=== PATIENT | female | born 1970 | race Caucasian/White ===

== ENCOUNTER → 2016-06-27 | Outpatient (CLI) | payer OTHER ==
[~2016-06-27] MED LIST: [UNRECOGNIZED DRUG - CODE] PO
== END | disposition home or self-care (01) ==
LOC: C.PAPS 10:11
PROVIDERS: ATTEND Obstetrics & Gynecology
DX: Z01.419 Encounter for gynecological examination (general) (routine) without abnormal findings (principal)

== ENCOUNTER → 2016-10-24 | Outpatient (CLI) | payer OTHER ==
--- NOTE | 2016-10-27 07:43 | MAMMOGRAPHY REPORT ---
BILATERAL DIGITAL SCREENING MAMMOGRAM TOMOSYNTHESIS WITH CAD: 10/24/2016 CLINICAL HISTORY: Routine screening. Patient has no complaints. TECHNIQUE: Breast tomosynthesis in addition to standard 2D mammography was performed. Current study was also evaluated with a Computer Aided Detection (CAD) system. COMPARISON: Comparison is made to exams dated: 11/23/2015 mammogram, 11/24/2014 mammogram, 11/18/2013 m ammogram, 06/17/2013 ultrasound, 06/17/2013 mammogram, and 11/26/2012 ultrasound - [facility]. BREAST COMPOSITION: The tissue of both breasts is extremely dense, which lowers the sensitivity of m ammography. FINDINGS: No suspicious masses, calcifications, or areas of architectural distortion are noted in ei ther breast. There has been no significant interval change compared to prior exams. IMPRESSION: ACR BI-RADS CATEGORY 1: NEGATIVE There is no mammographic evidence of malignancy. A 1 year screening mammogram is recommended. The pa tient will receive written notification of the results. Approximately 10% of breast cancers are not detected with mammography. A negative mammographic report should not delay biopsy if a clinically suggestive mass is present. Hanh Honeycutt M.D. /:10/24/2016 15:24:58 Senior Data Architect: Veronique Hernandez, [facility] letter sent: Normal 1/2 BI-RADS Code: ACR BI-RADS Category 1: Negative
== END | disposition home or self-care (01) ==
LOC: C.MAMM 13:50
PROVIDERS: ATTEND Obstetrics & Gynecology
DX: Z12.31 Encounter for screening mammogram for malignant neoplasm of breast (principal)

== ENCOUNTER → 2017-05-04 | Outpatient (CLI) | payer OTHER | END | disposition home or self-care (01) | LOC: C.PATHSPEC 17:18 | PROVIDERS: ATTEND Dermatology | DX: D23.4 Other benign neoplasm of skin of scalp and neck (principal); L81.4 Other melanin hyperpigmentation; D22.5 Melanocytic nevi of trunk ==

== ENCOUNTER → 2017-07-03 | Outpatient (CLI) | payer OTHER | END | disposition home or self-care (01) | LOC: C.PAPS 18:14 | PROVIDERS: ATTEND Obstetrics & Gynecology | DX: Z01.419 Encounter for gynecological examination (general) (routine) without abnormal findings (principal) ==

== ENCOUNTER → 2017-10-16 | Outpatient (CLI) | payer OTHER ==
--- NOTE | 2017-10-19 07:45 | MAMMOGRAPHY REPORT ---
BILATERAL DIGITAL SCREENING MAMMOGRAM TOMOSYNTHESIS WITH CAD: 10/16/2017 CLINICAL HISTORY: Routine screening. Patient has no complaints. TECHNIQUE: The study was acquired using full field digital technology and interpreted from soft copy. Breast tomosynthesis in addition to standard 2D mammography was performed. Current study was also ev aluated with a Computer Aided Detection (CAD) system. COMPARISON: Comparison is made to exams dated: 10/24/2016 mammogram, 11/23/2015 mammogram, 11/24/2014 m ammogram, 11/18/2013 mammogram, 06/17/2013 ultrasound, and 06/17/2013 mammogram - [facility]. BREAST COMPOSITION: The tissue of both breasts is extremely dense, which lowers the sensitivity of ma mmography. FINDINGS: There are possible faint calcifications within the left posterior and inferior breast, best seen on t he MLO view, which may be located in the medial breast on the cc view. Recommend spot magnification views and left X CCL view for further evaluation. The remainder of both breasts are stable compared to prior exams, without suspicious masses, calcific ations, or areas of architectural distortion noted. IMPRESSION: ACR BI-RADS CATEGORY 0: INCOMPLETE EVALUATION: NEED ADDITIONAL IMAGING EVALUATION Possible left breast calcifications, for which additional imaging evaluation is recommended. The pat ient will be called to schedule an appointment. Some breast cancers are not detected with mammography. A negative mammographic report should not giselle y biopsy if a clinically suggestive mass is present. Hanh Honeycutt M.D. /:10/16/2017 16:15:09 Wellness Rn: Bina Woodson RT(R)(M)(BD), [facility] letter sent: Addl Imaging 0 BI-RADS Code: ACR BI-RADS Category 0: Incomplete Evaluation: Need Additional Imaging Evaluation
== END | disposition home or self-care (01) ==
LOC: C.MAMM 08:32
PROVIDERS: ATTEND Obstetrics & Gynecology
DX: Z12.31 Encounter for screening mammogram for malignant neoplasm of breast (principal)

== ENCOUNTER → 2017-11-06 | Outpatient (CLI) | payer OTHER ==
--- NOTE | 2017-11-06 15:28 | MAMMOGRAPHY REPORT ---
UNILATERAL LEFT DIGITAL DIAGNOSTIC MAMMOGRAM: 11/06/2017 CLINICAL HISTORY: Callback from screening mammogram for left breast calcifications. Family history of breast cancer including her mother. TECHNIQUE: The study was acquired using full field digital technology and interpreted from soft copy. Spot magnification left CC and ML views were obtained. COMPARISON: Comparison is made to exams dated: 10/16/2017 mammogram, 10/24/2016 mammogram, 11/23/2015 m ammogram, 11/24/2014 mammogram, 11/18/2013 mammogram, and 06/17/2013 mammogram - [facility]. BREAST COMPOSITION: The tissue of left breast is extremely dense, which lowers the sensitivity of ulises mography. FINDINGS: Spot magnification views of the left breast demonstrate multiple small clusters of similar appearing faint amorphous calcifications within the left inferior breast at approximately 5 to 7:00. The calci fications are not clearly stable compared to prior exams, therefore, findings are indeterminate and s tereotactic biopsy of 1 of the clusters is recommended for further evaluation. IMPRESSION: ACR BI-RADS CATEGORY 4: SUSPICIOUS Multiple small similar-appearing clusters of faint amorphous calcifications in the left inferior odin st. The calcifications are indeterminate and stereotactic biopsy of one of the employment program representative cluste rs is recommended for further evaluation. Pending benign pathology results, recommend follow-up diag nostic mammograms of the left breast in 6 months to confirm stability of the other clusters of calcif ications. A phone call was made to the physician's office to confirm faxed results were received. The patient has been verbally notified of the results. She tentatively scheduled the biopsy before l eaving the department. The patient would prefer to schedule her biopsy in November after her bicycle race is completed. Some breast cancers are not detected with mammography. A negative mammographic report should not giselle y biopsy if a clinically suggestive mass is present. Hanh Honeycutt M.D. /:11/06/2017 10:55:05 Front Desk Auxiliary: Veronique Hernandez, [facility] letter sent: Abnormal 4/5 BI-RADS Code: ACR BI-RADS Category 4: Suspicious
== END | disposition home or self-care (01) ==
LOC: C.MAMM 09:15
PROVIDERS: ATTEND Obstetrics & Gynecology
DX: R92.1 Mammographic calcification found on diagnostic imaging of breast (principal)